=== PATIENT | male | born 1955 | race Hispanic/Latino ===

== ENCOUNTER 2016-12-17 14:50 | Emergency (ER) | payer OTHER ==
[~2016-12-17] VITALS: Ht 170.2 cm; Wt 81.6 kg
[~2016-12-17 14:50] MED LIST: CYCLOBENZAPRINE10 M1 PO; NAPROSYN500 M1 PO; VICODIN 5-3001 EACH PO
[2016-12-17 16:25] LABS: ABSOLUTE BASOPHIL COUNT 0 /CUMM (0.0-0.2); ABSOLUTE EOSINOPHIL COUNT 0.4 /CUMM (0.0-0.7); ABSOLUTE GRANULOCYTE CT 4.5 /CUMM (1.4-6.5); ABSOLUTE LYMPH COUNT 1.8 /CUMM (1.2-3.4); ABSOLUTE MONOCYTE COUNT 0.8 /CUMM (0.10-0.60); BASOPHIL % 0.3 % (0.0-2.0); EOSINOPHIL % 5.3 % (0-5); GRANULOCYTE % 60.1 % (42.2-75.2); HEMATOCRIT 45.1 % (42-52); MEAN CORPUSCULAR HGB 29.6 PG (27.0-31.0); MEAN CORPUSCULAR HGB CONC 32.9 G/DL (33.0-37.0); MEAN CORPUSCULAR VOLUME 89.8 FL (80.0-94.0); MEAN PLATELET VOLUME 7.5 FL (7.4-10.4); PLATELET COUNT 249 /CUMM (130-400); RBC DISTRIBUTION WIDTH 13.7 % (11.5-14.5); RED BLOOD CELL CT 5.03 /CUMM (4.70-6.10); WHITE BLOOD CELL COUNT 7.4 /CUMM (4.8-10.8)
--- NOTE | 2016-12-17 16:35 | ED GENERAL ADULT ---
See Addendum History of Present Illness General Chief Complaint: General Adult Stated Complaint: needs chest x-ray Source: patient Exam Limitations: no limitations Allergies Coded Allergies: No Known Allergies (03/28/16) Reconcile Medications Amlodipine Besylate 2.5 MG TABLET 1 TAB PO DAILY BP (Reported) Aspirin (Ecotrin*) 81 MG TABLET.DR 1 TAB PO DAILY HEART/BLOOD (Reported) Atorvastatin Calcium 40 MG TABLET 1 TAB PO DAILY CHOLESTEROL (Reported) Losartan Potassium 100 MG TABLET 1 TAB PO DAILY BP (Reported) Metformin HCl (Metformin HCl ER) 500 MG TAB.ER.24H 4 TAB PO QPM DM (Reported) Multivitamin (Multi-Day Vitamins) 1 EACH TABLET 1 TAB PO DAILY SUPPLEMENT ( Reported) Triage Note: SENT BY PMD FOR CXR, PT STATES THAT FOR THE PAST 3 DAYS HE HAS BEEN HAVING SHARP PAIN MID CHEST NON RADIATING BUT INCREASES WHEN HE TAKES A DEEP BREATH. HAD EKG AT PMD OFFICE AND TOLD IT WAS FINE Triage Nurses Notes Reviewed? yes Onset: Gradual Duration: day(s): (3) Timing: no prior history Injury Environment: home Severity: moderate Severity Numbers: 6 No Modifying Factors: none Associated Symptoms: chest pain HPI: Patient is a 61-year-old male presenting to the emergency department chief complaining of centralized chest pain that began 3 days ago, has been constant, worse with deep inspiration. Denies coughing. No shortness of breath. He reports that the pain got up to 9 on a 10 last night so he decided to come in today. Pain is currently 6 out of 10. Pain does not radiate. Denies any lower extremity edema. No recent surgeries. He does report that he went on a plane trip to [place] approximately 4 weeks ago. No sick contacts or recent travel. Denies upper respiratory congestion. Denies taking anything at home to help with symptoms. He usually takes a baby aspirin daily. Did not take it today. (ARABELLA MEYER) Vital Signs & Intake/Output Vital Signs & Intake/Output Vital Signs Date Time Temp Pulse Resp B/P B/P Pulse O2 O2 Flow FiO2 Mean Ox Delivery Rate 12/18 1939 97.8 76 18 123/85 93 Room Air Room Air 12/17 1701 98 Room Air 12/17 1551 97.1 90 18 119/80 98 Room Air Past History Travel History Traveled to [place] past 21 day No Medical History Any Pertinent Medical History? see below for history Cardiovascular: hypertension, hyperlipidemia Musculoskeletal: disk herniation Surgical History Surgical History: non-contributory Psychosocial History What is your primary language [place] Tobacco Use: Never used ETOH Use: denies use Illicit Drug Use: denies illicit drug use Family History Hx Contributory? No (ARABELLA MEYER) Review of Systems Review of Systems Constitutional: Reports: no symptoms. Comments Review of systems: See HPI, All other systems negative. Constitutional, no chills fever or weight loss HEENT: No visual changes no sore throat no congestion Cardiovascular: No palpitation , orthopnea or ankle swelling Skin, no jaundice no rashes Respiratory: No dyspnea cough sputum or hemoptysis GI: No nausea no vomiting : No dysuria No hematuria Muscle skeletal: no back pain, no neck pain, Neurologic: No numbness no confusion, no headaches Psych: No stress anxiety or depression,. Heme/endocrine: No bruising no bleeding no polyuria or polydipsia Immunology: No splenectomy or history of AIDS (ARABELLA MEYER) Physical Exam Physical Exam General Appearance: well developed/nourished, no apparent distress, alert, awake , comfortable Comments: Well-developed well-nourished person in no acute distress HEENT: Normal EENT exam, extraocular motion intact, no nystagmus. Pupils equally round and reactive to light and accommodation. Nose is atraumatic. External auditory canal and Tympanic membranes clear. Pharynx normal. No swelling or edema. Neck: Supple, no lymphadenopathy, normal range of motion without pain or tenderness Back: Nontender, no CVA tenderness. Full range of motion Cardiovascular: Regular rate and rhythms no murmurs rubs or gallops, normal JVP Respiratory: Chest nontender. No respiratory distress.breath sounds clear to auscultation bilaterally Abdomen: Soft, obese, nontender nondistended, no appreciable organomegaly. Normal bowel sounds. No ascites. Patient reports pain with deep inspiration. Extremity: No edema Neuro: Alert oriented x3, Skin: No appreciable rash on exposed skin, skin is warm and dry. Psych: Mood and affect is normal, memory and judgment is normal. (ARABELLA MEYER) Core Measures ACS in differential dx? Yes CVA/TIA Diagnosis: No Severe Sepsis Present: No Septic Shock Present: No (PATRIA MEDRANO,SAMMIE) Progress Differential Diagnoses I considered the following diagnoses in my evaluation of the patient: Pulmonary embolus, ACS, aortic dissection, pleurisy, muscle strain Diagnostic Imaging: Viewed by Me: Radiology Read, CT Scan. Discussed w/RAD: Radiology Read, CT Scan. Radiology Impression: RESENT AGE: 61 PATIENT ACCOUNT NO: [id number] : 59 LOCATION: [facility] ORDERING PHYSICIAN: FORTINO SEXTON DO SERVICE DATE: 12/17/16 EXAM TYPE: RAD - XRY-CHEST XRAY, PA AND LATERAL EXAMINATION: XR CHEST CLINICAL INFORMATION: Chest pain. COMPARISON: None TECHNIQUE: 2 views of the chest were obtained. FINDINGS: Descending thoracic aorta is tortuous. The cardiomediastinal silhouette is otherwise within normal limits. The lungs and pleural spaces appear clear. There is no evidence of pneumothorax or pulmonary edema. Included osseous structures appear largely unremarkable. IMPRESSION: No evidence of acute intrathoracic process. DICTATED BY: ERROL CONTRERAS MD DATE/ TIME DICTATED:12/17/161645 GRAVITY PROSPECTING OBSERVER:WAQAS DATE/TIME TRANSCRIBED: 12/17/161645 CONFIDENTIAL, DO NOT COPY WITHOUT APPROPRIATE AUTHORIZATION. < Electronically signed in Other Vendor System> SIGNED BY: ERROL CONTRERAS MD 12/17/161650 Initial ED EKG: NORMAL SINUS RHYTHM AT 70 BPM Prior EKG: unchanged Hand-Off Endorsed To: SAMMIE ESPÑAA PA-C Endorsed Time: 1999 Pending: labs Comments: Concern for dissection with chest pain radiating to the back. Patient's vitals are stable at this time. Patient also having pleuritic chest pain. We will consider PE as well. CBC, CMP, troponin, d-dimer was ordered. We will get a chest x-ray. Patient reports that the pain had decreased to 4 out of 10 while here in the emergency department with any treatment. Patient was given aspirin initially on arrival. He was informed of all lab results and CT results. No signs of dissection. D-dimer is negative, no PE. We will obtain repeat EKG and troponin. If that is negative patient can be cleared for discharge home. Pain is constant for the past 3 days. (ARABELLA MEYER) Plan of Care: Orders Procedure Date/time Status TROPONIN LEVEL 12/17 1842 Active EKG 04/21 1843 Active Add-on Test (ER Only) 12/17 1706 Active D-DIMER 12/17 1706 Complete Telemetry/Freelance Photographer 12/17 1637 Active Add-on Test (ER Only) 12/17 1634 Active LIPASE 12/17 1615 Complete AMYLASE 12/17 1615 Complete EKG 12/17 1551 Active TROPONIN LEVEL 12/17 1550 Complete COMPREHENSIVE METABOLIC PANEL 12/17 1550 Complete CBC WITHOUT DIFFERENTIAL 12/17 1550 Complete Laboratory Tests 12/17/16 1932: Troponin I Pending 12/17/16 1725: D-Dimer 221 12/17/16 1615: Anion Gap 13, Estimated GFR > 60, BUN/Creatinine Ratio 13.3, Glucose 90, Calcium 9.7, Total Bilirubin 0.8, AST 26, ALT 48, Alkaline Phosphatase 100, Troponin I < 0.01, Total Protein 8.0, Albumin 4.8, Globulin 3.2, Albumin/Globulin Ratio 1.5, Amylase 46, Lipase 38, CBC w Diff NO MAN DIFF REQ, RBC 5.03, MCV 89.8, MCH 29.6, RDW 13.7, MPV 7.5, Gran % 60.1, Lymphocytes % 23.6, Monocytes % 10.7 H, Eosinophils % 5.3 H, Basophils % 0.3, Absolute Granulocytes 4.5, Absolute Lymphocytes 1.8, Absolute Monocytes 0.8 H, Absolute Eosinophils 0.4, Absolute Basophils 0, PUBS MCHC 32.9 L Departure Departure Disposition: HOME OR SELF CARE Condition: Stable Clinical Impression Primary Impression: Chest pain Qualifiers: Chest pain type: chest pain on breathing Qualified Code: R07.1 - Chest pain on breathing Referrals: SALVADOR BROOKS,AMANDA Hayes (PCP/Family) Additional Instructions: Follow-up with your primary care physician calling appointment. Return for worsening symptoms or concerns. Departure Forms: Customer Survey General Discharge Information (ARABELLA MEYER) PA/PARTITION SETTER Co-Sign Statement Statement: ED Attending supervision documentation- [] I saw and evaluated the patient. I have also reviewed all the pertinent lab results and diagnostic results. I agree with the findings and the plan of care as documented in the PA's/PARTITION SETTER's documentation. [x] I have reviewed the ED Record and agree with the PA's/PARTITION SETTER's documentation. [] Additions or exceptions (if any) to the PAs/PARTITION SETTER's note and plan are summarized below: [] (FORTINO SEXTON DO) Critical Care Note Critical Care Note Critical Care Time: non-applicable (PATRIA MEDRANO,SAMMIE)
[2016-12-17] MEDS ORDERED: AMLODIPINE BES2.5 M1 PO (16:40)
[2016-12-17] MEDS ORDERED: METFORMIN HCL500 M4 PO (16:40)
[2016-12-17] MEDS ORDERED: LOSARTAN POTAS100 M1 PO (16:40)
[2016-12-17] MEDS ORDERED: MULTI-DAY VITA1 EACH PO (16:41)
[2016-12-17] MEDS ORDERED: ATORVASTATIN CA40 M1 PO (16:41)
[2016-12-17] MEDS ORDERED: ASPIRIN EC81 M1 PO (16:41)
--- NOTE | 2016-12-17 16:51 | RADIOLOGY REPORT ---
EXAMINATION: XR CHEST CLINICAL INFORMATION: Chest pain. COMPARISON: None TECHNIQUE: 2 views of the chest were obtained. FINDINGS: Descending thoracic aorta is tortuous. The cardiomediastinal silhouette is otherwise within normal limits. The lungs and pleural spaces appear clear. There is no evidence of pneumothorax or pulmonary edema. Included osseous structures appear largely unremarkable. IMPRESSION: No evidence of acute intrathoracic process.
--- NOTE | 2016-12-17 18:40 | CT SCAN REPORT ---
EXAMINATION: CT ANGIOGRAM chest, abdomen, and pelvis CLINICAL INFORMATION: Rule out PE and dissection. Chest pain and shortness of breath. COMPARISON: None TECHNIQUE: CTA images were obtained through the chest, abdomen and pelvis following the administration of 94 mL of Optiray 320 intravenous contrast. Multiplanar MIP reformatted images were acquired on an independent workstation. Coronal and sagittal reformatted images were also obtained. DLP: 1134 mGy-cm FINDINGS: Chest: There is no adenopathy. The heart and pericardium are unremarkable. There are minor dependent changes within the lungs. There is a small region of platelike opacity in the periphery of the lingula. The lungs are otherwise clear. The central airways appear patent. No pleural effusion. No pneumothorax. ABDOMEN/PELVIS: The liver is slightly low in attenuation diffusely suggesting hepatic steatosis. The gallbladder, adrenal glands, spleen, pancreas, and kidneys appear unremarkable. There are hypoattenuating structures within the kidneys bilaterally, the largest is in the left lower pole and measures 3.8 cm. These are statistically cysts. There is no evidence of ascites or free intra-abdominal air. There is no adenopathy visualized. Loops of small and large bowel appear normal in caliber and configuration. No surrounding inflammatory change. A normal appendix is visualized. There are bilateral fat-containing inguinal hernias, larger on the left. The pelvic viscera appear unremarkable. The partially imaged bladder appears unremarkable. Osseous: There is a lucent and sclerotic nonaggressive lesion within the proximal right femur measuring approximately 2.5 cm in the intertrochanteric region. No compression deformities. Mild degenerative change in the thoracolumbar spine. No evidence of spondylolysis or scoliosis. No acute osseous abnormalities. Vascular: The aorta is normal in caliber and normally opacified. The great vessels arising from it appear normal. Incidentally the left vertebral artery arises directly from the aortic arch. The central and segmental pulmonary arteries are well-opacified. No intraluminal filling defects are identified. The celiac axis, superior mesenteric artery, renal arteries, and inferior mesenteric artery all appear unremarkable. The iliac arteries are normally opacified. There is no evidence of dissection or vascular occlusion. No significant atherosclerotic disease is evident. IMPRESSION: 1. No evidence of aortic dissection or central or segmental pulmonary embolism. 2. No acute intrathoracic, intra-abdominal or intrapelvic pathology is visualized. 3. Mild hepatic steatosis. Bilateral renal cysts. Left greater than right fat-containing inguinal hernias.
[2016-12-17 20:36] VITALS: BP 113/65
== END 2016-12-17 20:36 ==
LOC: ERH 14:50
PROVIDERS: Emergency Medicine
DX: R07.89 Other chest pain (principal)
CPT/HCPCS: 74174; 93005; 93010